=== PATIENT | male | born 1990 | race Caucasian/White ===

== ENCOUNTER → 2023-10-06 12:39 | Outpatient (REF) | payer OTHER, SELFPAY | LOC: WOUND 12:39 | PROVIDERS: ATTENDING PHYSICIAN Surgery; FAMILY PHYSICIAN Family Medicine | DX: L89.154 Pressure ulcer of sacral region, stage 4 (principal); B18.2 Chronic viral hepatitis C; F19.10 Other psychoactive substance abuse, uncomplicated; F17.290 Nicotine dependence, other tobacco product, uncomplicated | CPT/HCPCS: 11042; 99204 ==

== ENCOUNTER → 2023-10-06 13:26 | Outpatient (REF) | payer OTHER, SELFPAY | LOC: RAD 13:26 | PROVIDERS: ATTENDING PHYSICIAN Surgery; FAMILY PHYSICIAN Family Medicine | DX: L89.154 Pressure ulcer of sacral region, stage 4 (principal) | CPT/HCPCS: 72190 ==

== ENCOUNTER → 2023-10-13 13:00 | Outpatient (REF) | payer OTHER, SELFPAY | LOC: WOUND 13:00 | PROVIDERS: ATTENDING PHYSICIAN Surgery; FAMILY PHYSICIAN Family Medicine | DX: L89.154 Pressure ulcer of sacral region, stage 4 (principal); B18.2 Chronic viral hepatitis C; F19.10 Other psychoactive substance abuse, uncomplicated; F17.290 Nicotine dependence, other tobacco product, uncomplicated | CPT/HCPCS: 11042 ==

== ENCOUNTER → 2023-10-20 14:43 | Outpatient (REF) | payer OTHER, SELFPAY | LOC: WOUND 14:43 | PROVIDERS: ATTENDING PHYSICIAN Surgery; FAMILY PHYSICIAN Family Medicine | DX: L89.154 Pressure ulcer of sacral region, stage 4 (principal); F19.10 Other psychoactive substance abuse, uncomplicated; F17.290 Nicotine dependence, other tobacco product, uncomplicated; B18.2 Chronic viral hepatitis C | CPT/HCPCS: 11042 ==

== ENCOUNTER → 2023-11-11 10:24 | Outpatient (REF) | payer OTHER, SELFPAY | LOC: PAVMRI 10:24 | PROVIDERS: ATTENDING PHYSICIAN Surgery; FAMILY PHYSICIAN Family Medicine | DX: L89.154 Pressure ulcer of sacral region, stage 4 (principal) | CPT/HCPCS: 72197; A9575 ==

== ENCOUNTER → 2023-11-17 14:45 | Outpatient (REF) | payer OTHER, SELFPAY | LOC: WOUND 14:45 | PROVIDERS: ATTENDING PHYSICIAN Surgery; FAMILY PHYSICIAN Family Medicine | DX: L89.154 Pressure ulcer of sacral region, stage 4 (principal); F19.10 Other psychoactive substance abuse, uncomplicated; B18.2 Chronic viral hepatitis C; F17.290 Nicotine dependence, other tobacco product, uncomplicated | CPT/HCPCS: 97597 ==

== ENCOUNTER → 2023-12-01 14:27 | Outpatient (REF) | payer OTHER, SELFPAY | LOC: WOUND 14:27 | PROVIDERS: ATTENDING PHYSICIAN Surgery; FAMILY PHYSICIAN Family Medicine | DX: L89.154 Pressure ulcer of sacral region, stage 4 (principal); B18.2 Chronic viral hepatitis C; F19.10 Other psychoactive substance abuse, uncomplicated; F17.290 Nicotine dependence, other tobacco product, uncomplicated | CPT/HCPCS: 99212 ==